=== PATIENT | male | born 1995 | race Caucasian/White ===

== ENCOUNTER → 2017-04-11 16:53 | Emergency (ER) | payer BC ==
[~2017-04-11 16:53] MED LIST: Amoxicillin/Clavulanate TAB* 875 MG PO ONE; Lidocaine 2% VISCOUS* 15 ML UDC SWISH SPIT ONE
[2017-04-11 20:17] VITALS: BP 110/72
--- NOTE | 2017-05-18 14:57 | ED ---
Throat Pain/Nasal Congestion - HPI Summary HPI Summary: 21 yr old male with h/o pain in right side of mouth, no difficulty swallowing, started a few days ago. no recent ABX, no PMH, no h/o thrush, cold sores/ herpes virus. no prior occurrence. Patient denies SOB, fever currently. - History of Current Complaint Chief Complaint: EDGeneral Time Seen by Provider: 04/11/17 18:59 Hx Obtained From: Patient Onset/Duration: Sudden Onset, Lasting Days Severity: Moderate - Allergies/Home Medications Allergies/Adverse Reactions: Allergies Allergy/AdvReac Type Severity Reaction Status Date / Time No Known Allergies Allergy Verified 04/11/17 17:11 PMH/Surg Hx/FS Hx/Imm Hx Previously Healthy: Yes - denies PMH denies STDs, HIV Infectious Disease History: No Infectious Disease History: Denies: Traveled Outside the [place] in Last 30 Days - Social History Alcohol Use: Occasionally Substance Use Type: Reports: None Smoking Status (MU): Never Smoked Tobacco Review of Systems Constitutional: Negative Eyes: Negative Positive: Sore Throat Cardiovascular: Negative All Other Systems Reviewed And Are Negative: Yes Physical Exam Triage Information Reviewed: Yes Vital Signs On Initial Exam: Initial Vitals Temp Pulse Resp BP Pulse Ox 98.6 F 98 18 111/69 99 04/11/17 17:08 04/11/17 17:08 04/11/17 17:08 04/11/17 17:08 04/11/17 17:08 Vital Signs Reviewed: Yes Appearance: Positive: Well-Appearing, No Pain Distress, Well-Nourished Skin: Positive: Warm, Skin Color Reflects Adequate Perfusion Head/Face: Positive: Normal Head/Face Inspection Eyes: Positive: Normal, EOMI ENT: Positive: Pharyngeal erythema - mild erythema b/l pharynx with small spot of exudate on right, no tonisllar swelling, TMs normal Neck: Positive: Supple, Nontender, No Lymphadenopathy Respiratory/Lung Sounds: Positive: Clear to Auscultation, Breath Sounds Present Cardiovascular: Positive: Normal, RRR Neurological: Positive: Normal, Sensory/Motor Intact Psychiatric: Positive: Normal - [place] Coma Scale Coma Scale Total: 15 Diagnostics - Vital Signs Vital Signs Temp Pulse Resp BP Pulse Ox 04/11/17 20:16 98.2 F 88 18 110/72 99 04/11/17 17:08 98.6 F 98 18 111/69 99 - Laboratory Lab Statement: Any lab studies that have been ordered have been reviewed, and results considered in the medical decision making process. EENT Course/Dx - Course Course Of Treatment: pharyngitis, ABX given, follow up with [facility] for repeat evaluation. - Diagnoses Provider Diagnoses: Pharyngitis Discharge - Discharge Plan Condition: Good Disposition: HOME Prescriptions: Amoxicillin/Clavulanate TAB* [Augmentin TAB 875*] 875 mg PO BID #14 tab Lidocaine 2% VISCOUS* [Xylocaine 2% Viscous*] 15 ml SWISH SPIT Q4H PRN #1 btl PRN Reason: Pain Referrals: [facility] - Eduardo BARROSO [Primary Care Provider] -
== END | disposition home or self-care (01) ==
LOC: ED 16:53
DX: J02.9 Acute pharyngitis, unspecified (principal)
CPT/HCPCS: 99282; A9270-GY